=== PATIENT | female | born 1965 | race Caucasian/White ===

== ENCOUNTER 2024-12-20 01:55 | Emergency (ER) | payer BC ==
[2024-12-20] MEDS ORDERED: Sodium Chloride 0.9% 2.5 ML Syringe FLUSH PRN (02:42)
[2024-12-20] MEDS ORDERED: Sodium Chloride 0.9% 10 ML Syringe FLUSH PRN (02:42)
[2024-12-20 02:49] LABS: MEAN PLATELET VOLUME 11.1 fL (9.4-12.3); NRBC ABSOLUTE 0.00 K/uL (0.00-0.02); NRBC PERCENT 0.0 /100WBC (0.0-0.2); PLATELET COUNT,PLT 250 K/uL (150-400); RED BLOOD CELL COUNT 4.57 M/uL (4.10-5.30); WHITE BLOOD CELL COUNT,WBC 18.52 K/uL (3.9-11.3)
[2024-12-20 02:56] LABS: INR 1.03 (0.86-1.11)
[2024-12-20] MEDS: metroNIDAZOLE/Normal Saline 500 MG in Premix Bag 1 BAG IV ONE (02:58)
[2024-12-20 03:00] LABS: A/G RATIO 0.9 (0.9-1.6); ALANINE AMINOTRANSFERASE,ALT 15.0 IU/L (14-63); ASPARTATE AMNIOTRANSFERASE,AST 18.0 IU/L (15-37); BILIRUBIN TOTAL 0.5 mg/dL (0.2-1.0); BLOOD UREA NITROGEN,BUN 5.0 mg/dL (7.0-18.0); CARBON DIOXIDE,CO2 23.5 mmol/L (21.0-32.0); CHLORIDE,CL 103.0 mmol/L (98-107); CREATININE 0.9 mg/dL (0.6-1.0); EST CRCL DRUG DOSING (CG) 55.68 mL/min; GLUCOSE RANDOM 123.0 mg/dL (74-106); POTASSIUM,K 3.4 mmol/L (3.5-5.1); PROTEIN TOTAL,TP 6.1 g/dL (6.4-8.2); SODIUM,NA 139.0 mmol/L (136-145)
[2024-12-20 03:02] LABS: ESTIMATED GFR 74.0 mL/min (>60)
[2024-12-20 03:12] LABS: LYMPHOCYTES ABSOLUTE MAN 1.67 K/uL (1.00-4.80); LYMPHOCYTES PERCENT MAN 9 % (24-44); MONOCYTES ABSOLUTE MAN 1.85 K/uL (0.00-0.80); MONOCYTES PERCENT MAN 10 % (0-8); SEG NEUTROPHILS ABSOLUTE MAN 15.00 K/uL (1.80-7.70); SEG NEUTROPHILS PERCENT MAN 81 % (41-71)
[2024-12-20 03:20] LABS: GLUCOSE,URINE NEGATIVE (NEGATIVE); OCCULT BLOOD,URINE TRACE-INTACT (NEGATIVE)
[2024-12-20 03:31] LABS: LACTIC ACID 0.9 mmol/L (0.4-2.0)
[2024-12-20 03:31] LABS: APPEARANCE,URINE HAZY; EPITHELIAL CELLS,URINE RARE (NONE-FEW)
[2024-12-20] MEDS: Iopamidol 755 MG/ML 500 ML Multipack Bottle IVPUSH ONE (04:44)
[2024-12-20] MEDS: Lactated Ringers 1,000 ML IV SCH (05:58)
[2024-12-20] MEDS: Ondansetron 4 MG/2 ML SDV IVPUSH ONE (06:28)
[2024-12-20] MEDS: Ketorolac 30 MG/ML SDV IVPUSH ONE (06:28)
== END 2024-12-20 10:00 ==
LOC: MW.ED 01:55
DX: K52.9 Noninfective gastroenteritis and colitis, unspecified (principal); K92.1 Melena; E03.9 Hypothyroidism, unspecified; Z79.899 Other long term (current) drug therapy
CPT/HCPCS: 36415; 74174; 80053; 81001; 83605; 83630; 83735; 85025; 85610; 87045; 87046; 87328; 87329; 87449; 87899; 96361; 96365; 96375; 99285; A9270; J1836; J1885; J2405; J7030; J7120; Q9967; 99284